=== PATIENT | female | born 1970 | race Caucasian/White ===

== ENCOUNTER 2017-12-19 23:41 | Emergency (ER) | payer BC ==
--- NOTE | 2017-12-19 23:51 | EDPHY ---
H & P Stated Complaint: SHUT RIGHT FINGERS IN CAR DOOR Time Seen by Provider: 12/19/17 23:50 HPI/ROS: HPI CHIEF COMPLAINT: Right hand injury HISTORY OF PRESENT ILLNESS: 47-year-old female presents emergency room after she states that she caught her right hand in the hotel door. She is visiting from [place]. She presents emergency room with pain to the 5th digit, and a laceration to the 3rd digit distal aspect. Denies any other areas of injury. She did have 2 vodka drinks this evening. She presents emergency room appears to be intoxicated with alcohol. Slurring her speech. Tearful. Patient reports her tetanus shot is not up-to-date. Past Medical History: Otherwise no significant medical history Past Surgical History: Hysterectomy Social History: Alcohol this evening. Family History: Noncontributory ROS REVIEW OF SYSTEMS: 10 Systems were reviewed and negative with the exception of the elements mentioned in the history of present illness. Exam Constitutional nontoxic no acute distress triage nursing summary reviewed, vital signs reviewed, awake/alert. Eyes normal conjunctivae and sclera, EOMI, PERRLA. HENT normal inspection, atraumatic, moist mucus membranes, no epistaxis, neck supple/ no meningismus, no raccoon eyes. Respiratory clear to auscultation bilaterally, normal breath sounds, no respiratory distress, no wheezing. Cardiovascular rate normal, regular rhythm, no murmur, no edema, distal pulses normal. Gastrointestinal soft, non-tender, no rebound, no guarding, normal bowel sounds, no distension, no pulsatile mass. Genitourinary no CVA tenderness. Musculoskeletal no midline vertebral tenderness, full range of motion, no calf swelling, no tenderness of extremities, no meningismus, good pulses, neurovascularly intact. Skin right hand: Neurovascular intact, good cap refill, good radial pulse, full range of motion, distal aspect medial side palmar side of the 3rd digit is small 3 cm laceration. Also tender palpation over the 5th digit. With no significant swelling. No tendon abnormality. No foreign body visualized. Neurologic awake, alert and oriented x 3, AAOx3, moves all 4 extremities equally, motor intact, sensory intact, CN II-XII intact, normal cerebellar, normal vision, normal speech. Psychiatric normal mood/affect. Heme/Lymph/Immune no lymphadenopathy. Differential Diagnosis: Includes but is not limited to in a particular order hand contusion, hand sprain, hand fracture, finger fracture, hand laceration, crush injury, tuft fracture Medical Decision Making: Plan for this patient x-ray right hand. Update tetanus shot. Re-evaluation: X-ray reviewed of the right hand. This shows a tuft fracture distal aspect right 3rd digit. Overlying laceration. Laceration Repair Procedure: Verbal Consent was obtained, Under sterile conditions, The patient had lidocaine without epinephrine used approximately 3ccs to local anesthetize the 3CM distal aspect 3rd digit Laceration. The wound was copiously irrigated with sterile fluid, the wound was explored for foreign bodies there were none visualized, the wound was explored with a sterile glove to the base. There are no deep structures involved, including no arterial injury. THREE 6.O PROLENE interrupted Sutures were placed in this patient's laceration. He had good close approximation of the wound edges. He Tolerated this well. A disc is provided for the patient she is from out of town. I do recommend she follows up with Hand surgery her primary care doctor when she returns to [place]. Her tetanus shot has been updated here in emergency room. She has been splinted in alumino form splint. Additionally Keflex provided. Ibuprofen for mild pain. Niagara for severe pain. Watch for signs of infection this been discussed with her and her at bedside. Return precautions discussed return if worsening pain, swelling, fever, signs of infection. Source: Patient - Personal History LMP (Females 10-55): Hysterectomy Current Tetanus/Diphtheria Vaccine: Unsure - Medical/Surgical History Hx Asthma: No Hx Chronic Respiratory Disease: No Hx Diabetes: No Hx Cardiac Disease: No Hx Renal Disease: No Hx Cirrhosis: No Hx Alcoholism: No Hx HIV/AIDS: No Hx Splenectomy or Spleen Trauma: No Other PMH: GALLBLADDER, FOOT SURGERIES, ENDOMETRIOSIS IN LIVER - Social History Smoking Status: Current some day smoker Constitutional: Initial Vital Signs Temperature (C) 36.9 C 12/19/17 23:44 Heart Rate 105 H 12/19/17 23:44 Respiratory Rate 20 12/19/17 23:44 Blood Pressure 154/100 H 12/19/17 23:44 O2 Sat (%) 97 12/19/17 23:44 O2 Delivery Mode Room Air Allergies/Adverse Reactions: No Known Allergies Allergy (Unverified 12/19/17 23:43) Home Medications: Medication Instructions Recorded Nasal [place] 12/19/17 PREMARIN 12/19/17 Xanax 12/19/17 Cephalexin [Keflex] 500 mg PO Q6H #28 cap 12/20/17 Hydrocodone/APAP 5/325 [[place] 1 - 2 tab PO Q4H PRN #10 tab 12/20/17 5/325] Ibuprofen [Motrin (*)] 800 mg PO Q6-8PRN #10 tab 12/20/17 Medical Decision Making - Data Points Medications Given: Discontinued Medications Diphtheria/Tetanus/Acell Pertussis (Boostrix) 0.5 ml IM .ONCE ONE Stop: 12/19/17 23:57 Last Admin: 12/20/17 00:05 Dose: 0.5 ml Ibuprofen (Motrin) 600 mg PO EDNOW ONE Stop: 12/20/17 00:05 Last Admin: 12/20/17 00:05 Dose: 600 mg Departure - Departure Disposition: Home, Routine, Self-Care Clinical Impression: Closed fracture of tuft of distal phalanx of finger Hand contusion Qualifiers: Encounter type: initial encounter Laterality: right Qualified Code(s): S60.221A - Contusion of right hand, initial encounter Finger laceration Qualifiers: Encounter type: initial encounter Finger: middle finger Damage to nail status: with damage Foreign body presence: without foreign body Laterality: right Qualified Code(s): S61.312A - Laceration without foreign body of right middle finger with damage to nail, initial encounter Condition: Good Instructions: Care For Your Stitches (ED), Laceration (ED) Additional Instructions: 1. Splint for comfort and immobilization and protection. 2. Follow up with your primary care doctor or hand surgeon when you return to [place]. 3. Watch for signs of infection. 4. Sutures need to be removed in 14 days. 5. You're tetanus shot was updated here in the emergency room. 6. Antibiotics as prescribed. Referrals: Jorge Brandt MD [Medical Doctor] - As per Instructions Prescriptions: Cephalexin [Keflex] 500 mg PO Q6H #28 cap Hydrocodone/APAP 5/325 [[place] 5/325] 1 - 2 tab PO Q4H PRN #10 tab PRN Reason: Pain, Moderate Ibuprofen [Motrin (*)] 800 mg PO Q6-8PRN #10 tab
[2017-12-19] MEDS ORDERED: TDAP ADULT 0.5 ML INJ (BOOSTRIX) IM ONE (23:56)
[2017-12-20] MEDS ORDERED: IBUPROFEN 600 MG TAB PO ONE ×2 (00:01→00:04)
[2017-12-20 01:48] VITALS: BP 125/75
== END 2017-12-20 01:15 | disposition home or self-care (01) ==
PROC: 0HQFXZZ Repair Right Hand Skin, External Approach (ICD-10-PCS; principal; 2017-12-19)
DX: S61.312A Laceration without foreign body of right middle finger with damage to nail, initial encounter (principal); S60.221A Contusion of right hand, initial encounter; F17.200 Nicotine dependence, unspecified, uncomplicated; Z23 Encounter for immunization; W23.1XXA Caught, crushed, jammed, or pinched between stationary objects, initial encounter; Y92.59 Other trade areas as the place of occurrence of the external cause; Y99.9 Unspecified external cause status; Y93.9 Activity, unspecified
CPT/HCPCS: J0696; L3925